=== PATIENT | female | born 1960 | race Caucasian/White ===

== ENCOUNTER 2017-01-16 09:20 | Emergency (ER) | payer MEDICARE, BC ==
[~2017-01-16 09:20] MED LIST: ACIDOPHILUS1 EAC5 PO; ASPIRIN EC81 MG PO; ATENOLOL25 MG PO; AURYXIA PO; BACITRACIN28.4 G1 TP; BACTRIM DS TAB1 EAC2 PO; BACTROBAN22 GM TP; BENADRYL25 MG PO; CALCIUM; CALCIUM 600 +1 EA10 PO; CEPHALEXIN500 M2 PO; CLINDAMYCIN HC300 M2 PO; CLOBETASOL 0.05%; CO Q-10 PO; CO Q-1030 M1 PO; COLACE100 M1 PO; CRANBERRY400 MG PO; EQL FISH OIL 1,1 CA1 PO; FERRIC CITRATE210 MG PO; FISH OIL; FISH OIL 11000 MG/CA PO; GARLIC1 CAP PO; GARLIC1 EAC1 PO; GRAPE SEED PO; HYDRALAZINE HCL50 M1 PO; LASIX80 M1 PO; LEVOTHROID125 MCG PO; LEVOTHYROXINE112 MC3 PO; MELATONIN3 M4 PO; METAMUCIL660 GM PO; MULTI-VITAMIN1 EAC1 PO; MULTI-VITAMIN1 EAC3 PO; MYCOPHENOLIC A180 MG PO; NORCO 5/325 TAB1 TAB PO; OMEGA 31 CAP PO; PREDNISONE5 M1 PO; PSYLLIUM PO; RANITIDINE HCL150 M3 PO; VITAMIN B COMP1 EAC2 PO; VITAMIN C500 M3 PO; VITAMIN D250000 UNI1 PO; VITAMIN D3400 UNI5 PO; ZINC PO; ZINC50 M2 PO; [UNRECOGNIZED DRUG - CODE] PO; [UNRECOGNIZED DRUG - OTHER] PO
[2017-01-16 10:02] LABS: URINE APPEARANCE HAZY; URINE BILIRUBIN NEGATIVE (NEG); URINE BLOOD MODERATE (NEG); URINE COLOR YELLOW; URINE GLUCOSE (UA) NEGATIVE (NEG); URINE KETONE NEGATIVE (NEG); URINE LEUKOCYTE ESTERASE POSITIVE (NEG); URINE NITRITE NEGATIVE (NEG); URINE PROTEIN SMALL (NEG)
[2017-01-16 10:08] LABS: URINE WBC 40-50 /[HPF] (0-5)
[2017-01-16 10:09] LABS: URINE BACTERIA 2+
[2017-01-16] MEDS ORDERED: POTASSIUM CHLO20 ME3 PO (10:13)
[2017-01-16 10:37] LABS: BASO % 0.4 % (0-2); EOS % 0.6 % (0-7); EOSINOPHIL ABSOLUTE COUNT 0.1 tho/cmm (0.0-0.7); HCT-HEMATOCRIT 42.5 % (34.0-49.0); HGB-HEMOGLOBIN 13.6 gm/dl (12.0-15.5); IMMATURE GRANULOCYTES ABSOLUTE 0.02 tho/cmm (0-0.03); IMMATURE GRANULOCYTES PERCENT 0.2 % (0-0.3); LYMPH % 18.5 % (20-45); LYMPH ABSOLUTE COUNT 1.6 tho/cmm (0.8-4.5); MCH (MEAN CORPUSCULAR HGB) 29.2 pg (28.0-32.0); MCV (MEAN CELL VOLUME) 91.4 fl (82.0-96.0); MEAN PLATELET VOLUME 10.8 cmc (9.4-12.4); MONO % 12.5 % (0-12); MONOCYTE ABSOLUTE COUNT 1.1 tho/cmm (0.0-1.2); NEUTROPHIL ABSOLUTE COUNT 5.7 tho/cmm (1.6-8.0); NEUTROPHIL-AUTOMATED 5.7 tho/cmm (1.6-8.0); NEUTROPHILS % 67.8 % (40-80); PLATELET COUNT 150 tho/cmm (150-450); RED BLOOD COUNT 4.65 mil/cmm (4.00-5.20); RED CELL DISTRIBUTION WIDTH 13.5 % (12.4-16.4); WHITE BLOOD COUNT 8.4 tho/cmm (4.0-10.0)
[2017-01-16 10:51] LABS: ANION GAP 14 mmol/L (0-20); BLOOD UREA NITROGEN 32 mg/dl (6-24); CALCIUM 9.2 mg/dl (8.5-10.5); CARBON DIOXIDE-VENOUS 22 mmol/L (22-32); CHLORIDE 109 mmol/l (96-110); CREATININE 1.76 mg/dl (0.50-1.10); GLUCOSE 105 mg/dL (70-110); SODIUM 140 mmol/L (135-145); eGFR VALUE FOR BLACK 37 mL/Min
[2017-01-16 11:04] LABS: POTASSIUM 4.6 mmol/L (3.7-5.1)
[2017-01-16] MEDS ORDERED: CALCIUM-MAGNES1 EAC3 PO (11:29)
[2017-01-16] MEDS ORDERED: DEMADEX20 M1 PO (11:30)
[2017-01-16 11:55] LABS: PROCALCITONIN <0.05 ng/ml (0.05-0.09)
[2017-01-16] MEDS ORDERED: KEFLEX500 M4 PO (13:05)
== END 2017-01-16 13:32 ==
LOC: EDMED 09:20
PROVIDERS: Emergency Medicine
DX: N39.0 Urinary tract infection, site not specified (principal); I12.9 Hypertensive chronic kidney disease with stage 1 through stage 4 chronic kidney disease, or unspecified chronic kidney disease; N18.9 Chronic kidney disease, unspecified; Z94.0 Kidney transplant status; Z79.82 Long term (current) use of aspirin; Z79.899 Other long term (current) drug therapy
CPT/HCPCS: J0696; J7030